=== PATIENT | female | born 1965 | race Caucasian/White ===

== ENCOUNTER → 2017-06-30 | Outpatient (CLI) | payer OTHER | END | disposition home or self-care (01) | LOC: LABPAT 12:09 | PROVIDERS: ATTEND Orthopaedic Surgery | DX: Z01.812 Encounter for preprocedural laboratory examination (principal) | CPT/HCPCS: 87070 ==

== ENCOUNTER → 2018-03-26 | Outpatient (CLI) | payer OTHER ==
--- NOTE | 2018-03-26 14:23 | MR ---
EXAMINATION TYPE: MR cspine/lspine wo con DATE OF EXAM: 03/26/2018 COMPARISON: NONE HISTORY: Cervicalgia and lumbago per order. TECHNIQUE: Multiplanar, multisequence imaging of the cervical and lumbar spine are performed without IV contrast. FINDINGS: C-SPINE: FINDINGS: Sagittal images of the cervical spine show the craniocervical junction to appear within nor mal limits. The cervical and upper thoracic spinal cord is normal in course, caliber, and signal. V ertebral alignment is straightened with grade 1 retrolisthesis of C5 on C6. The vertebral body heigh ts are normal. There is moderate disc space narrowing C5-C6 level with mild to moderate anterior spur ring and heterogeneous Modic type III endplate changes. Mild disc space narrowing C6-C7 level is pres ent. No large posterior disc herniations are seen on sagittal images. Axial images show the C2-C3 level to appear within normal limits. Axial images at C3-C4 level show tiny central disc protrusion just left of midline axial image 39 and sagittal image 7 effacing anterior thecal sac, bilateral neural foramina are patent. Axial images at C4-C5 level are felt to appear within normal limits. Axial images at C5-C6 level show spondylolisthesis and broad-based right paracentral spur disc comple x effacing anterolateral thecal sac and causing asymmetric moderate to advanced right-sided neural fo raminal narrowing on axial image 22 left-sided neural foramen is patent. Axial images at C6-C7 level show broad-based spur disc complex effacing anterior thecal sac and causi ng moderate left and mild to moderate right-sided neural foraminal narrowing. Axial images at C7-T1 level are felt within normal limits. IMPRESSION: Straightening of cervical spine with multilevel degenerative changes most prominent at C5 -C6 level as detailed above. L-SPINE: Sagittal images of the lumbar spine show vertebral body heights and alignment to appear satisfactory. Small Schmorl nodes superior L1 endplate is present. The intervertebral discs demonstrate multilevel disc desiccation but the disc space heights are fairly well-maintained. No large posterior disc jose iations are seen on sagittal images. The conus medullaris is normal in position and signal ending mid L1 level. The bone marrow signal intensity is within normal limits. Axial images show to the T12-L1, L1-L2, and L2-L3 levels all to appear within normal limits. Axial images at L3-L4 level show mild broad disc bulge but spinal canal is preserved and bilateral ne ural foramina are patent. Axial images at L4-L5 level show mild facet degenerative changes bilaterally. Spinal canal is preserv ed. Bilateral neural foramina are patent. Axial images at L5-S1 level show mild facet degenerative changes bilaterally. Spinal canal is preserv ed. Bilateral neural foramina are patent. IMPRESSION: Mild multilevel degenerative changes mid to lower lumbar spine as detailed above.
== END | disposition home or self-care (01) ==
LOC: RADMRIMAIN 10:57
PROVIDERS: ATTEND Nurse Practitioner Acute Care
DX: M48.02 Spinal stenosis, cervical region (principal); M99.71 Connective tissue and disc stenosis of intervertebral foramina of cervical region; M43.12 Spondylolisthesis, cervical region; M51.26 Other intervertebral disc displacement, lumbar region; M47.812 Spondylosis without myelopathy or radiculopathy, cervical region; M47.817 Spondylosis without myelopathy or radiculopathy, lumbosacral region; M43.8X2 Other specified deforming dorsopathies, cervical region
CPT/HCPCS: 72141; 72148